=== PATIENT | female | born 1965 | race African-American/Black ===

== ENCOUNTER 2017-11-01 15:20 | Emergency (ER) | payer BC, OTHER ==
[~2017-11-01] VITALS: Ht 154.9 cm; Wt 70.3 kg
[~2017-11-01 15:20] MED LIST: NORCO 5-325 TA1 EACH PO; TRAMADOL 50 MG50 MG PO; ZYRTEC10 M2 PO
[2017-11-01 15:48] LABS: URINE BILIRUBIN NEGATIVE (Negative); URINE BLOOD 3+ (Negative); URINE CLARITY CLOUDY; URINE COLOR YELLOW; URINE GLUCOSE-RANDOM* NEGATIVE (Negative); URINE KETONES NEGATIVE (Negative); URINE NITRITE-REFLEX NEGATIVE (Negative); URINE PROTEIN (DIPSTICK) 2+ (Negative); URINE SPECIFIC GRAVITY 1.025 (1.005-1.035); URINE UROBILINOGEN 0.2 E.U./dl (0.2-1.0)
[2017-11-01 15:49] LABS: URINE LEUKOCYTES-REFLEX 1+ (Negative)
[2017-11-01 16:17] LABS: BACTERIA-REFLEX 1-9 Few /HPF (None Seen); CASTS None Seen /LPF (None Seen); CRYSTALS None Seen /LPF (None Seen); SQUAMOUS 4-10 Moderate /LPF (0-3); URINE RBC >20 Many /HPF (0-2); URINE WBC-REFLEX 0-5 Rare /HPF (0-5)
[2017-11-01] MEDS ORDERED: KEFLEX500 M1 PO (16:28)
[2017-11-01] MEDS ORDERED: PHENAZOPYRIDIN200 M2 PO (16:28)
== END 2017-11-01 16:46 | disposition home or self-care (01) ==
LOC: ER 15:20
PROVIDERS: Physician Assistant
DX: N39.0 Urinary tract infection, site not specified (principal); Z88.5 Allergy status to narcotic agent

== ENCOUNTER 2018-11-23 11:06 | Emergency (ER) | payer BC, OTHER ==
[~2018-11-23] VITALS: Ht 154.9 cm; Wt 70.8 kg
[~2018-11-23 11:06] MED LIST changes: +KEFLEX500 M1 PO; +PHENAZOPYRIDIN200 M2 PO
[2018-11-23 11:39] LABS: HEMOGLOBIN 8.9 gm/dL (12.0-15.0); MCH 20.7 pg (26.0-34.0); RBC 4.31 mil/uL (4.20-5.00)
[2018-11-23 11:46] LABS: ANION GAP 14 mmol/L (7-16); BUN 17 mg/dL (7-18); CALCIUM 9.5 mg/dL (8.5-10.1); CHLORIDE 102 mmol/L (98-107); CO2 23 mmol/L (21-32); CREATININE 1.5 mg/dL (0.6-1.0); GLUCOSE 132 mg/dL (74-106); POTASSIUM 3.3 mmol/L (3.5-5.1); SODIUM 139 mmol/L (136-145)
[2018-11-23 11:48] LABS: HEMATOCRIT 29.1 % (37.0-47.0); MCHC 30.6 g/dL (28.0-37.0); MCV 67.6 fL (80.0-100.0); RDW 21.8 % (10.5-14.5); WBC 8.1 thou/uL (4.0-11.0)
[2018-11-23 11:55] LABS: ALBUMIN 4.1 g/dL (3.4-5.0); SGOT 13 U/L (15-37); SGPT 10 U/L (30-65); TOTAL BILIRUBIN 0.3 mg/dL (<0.1-1.0); TOTAL PROTEIN 8.5 g/dL (6.4-8.2); TROPONIN-I <0.06 ng/mL (<0.06)
[2018-11-23 12:56] LABS: ANISOCYTOSIS 2+
[2018-11-23 12:57] LABS: MICROCYTES 2+
[2018-11-23] MEDS ORDERED: BENADRYL25 MG PO (12:57)
[2018-11-23 12:58] LABS: PLATELET COUNT ND thou/uL (150-400)
[2018-11-23 15:18] VITALS: BP 123/75; BP 129/77; BP 131/79; BP 131/80; BP 139/81
--- NOTE | 2018-11-23 16:33 | EKG ---
[address] [address] ELECTROCARDIOGRAM REPORT Name: JULIANA LOJA [id number] Admission: 11/23/18 Attend Phys: Discharge: Date of : 67 Report #: [id number] THIS REPORT FOR: //name// [facility] ED Test Date: 2018-11-23 Test Time: 11:27:03 Pat Name: JULIANA LOJA Department: Room: Gender: F Contracts Administrator: JOSE J : 1965 Requested By: Jennifer Kraus Order Number: [id number] MD: Usman Rucker Measurements Intervals [place] Rate: 94 P: 47 ME: 132 QRS: 28 QRSD: 83 T: 23 QT: 368 QTc: 461 Interpretive Statements Sinus rhythm Left atrial enlargement Compared to ECG 07/06/2009 07:41:37 Sinus tachycardia no longer present Electronically Signed On 11-23-2018 16:33:30 GROUNDSKEEPER SUPERVISOR by Usman Rucker [email or web address] <ELECTRONICALLY SIGNED> By: Usman Rucker MD 11/23/18 1633 [id number] MD SONYA Melissa
[2018-11-23 16:48] VITALS: BP 138/84
[2018-11-23] MEDS ORDERED: TRIGELS-F FORT1 EACH PO (16:52)
== END 2018-11-23 17:11 | disposition home or self-care (01) ==
LOC: ER 11:06
PROVIDERS: Student in an Organized Health Care Education/Training Program
DX: D64.9 Anemia, unspecified (principal); Z88.5 Allergy status to narcotic agent

== ENCOUNTER 2019-02-01 03:43 | Emergency (ER) | payer BC, OTHER ==
[~2019-02-01] VITALS: Ht 154.9 cm; Wt 68.0 kg
[~2019-02-01 03:43] MED LIST changes: +BENADRYL25 MG PO; +TRIGELS-F FORT1 EACH PO
[2019-02-01 04:20] LABS: HEMATOCRIT 37.2 % (37.0-47.0); HEMOGLOBIN 12.1 gm/dL (12.0-15.0); MCH 28.8 pg (26.0-34.0); MCHC 32.6 g/dL (28.0-37.0); MCV 88.4 fL (80.0-100.0); PLATELET COUNT 209 thou/uL (150-400); RBC 4.21 mil/uL (4.20-5.00); WBC 9.4 thou/uL (4.0-11.0)
[2019-02-01 04:32] LABS: ANION GAP 11 mmol/L (7-16); BUN 21 mg/dL (7-18); CALCIUM 9.1 mg/dL (8.5-10.1); CHLORIDE 105 mmol/L (98-107); CO2 24 mmol/L (21-32); CREATININE 0.5 mg/dL (0.6-1.0); GLUCOSE 106 mg/dL (74-106); POTASSIUM 4.1 mmol/L (3.5-5.1); SODIUM 140 mmol/L (136-145)
[2019-02-01 04:41] LABS: ALBUMIN 3.4 g/dL (3.4-5.0); SGOT 28 U/L (15-37); SGPT 14 U/L (30-65); TOTAL BILIRUBIN 0.3 mg/dL (<0.1-1.0); TOTAL PROTEIN 7.2 g/dL (6.4-8.2); TROPONIN-I <0.06 ng/mL (<0.06)
[2019-02-01 05:00] LABS: ABSOLUTE NEUTROPHILS 7.9 thou/uL (1.4-8.2)
[2019-02-01 05:02] LABS: ANISOCYTOSIS 2+; PLATELET ESTIMATE NORMAL
[2019-02-01] MEDS ORDERED: PEPCID20 MG PO (05:07)
[2019-02-01 06:43] VITALS: BP 184/100
--- NOTE | 2019-02-01 08:50 | EKG ---
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: [facility] : 1965 Requested By: Jennifer Kraus Order Number: [id number] MD: Usman Rucker Measurements Intervals [place] Rate: 92 P: 50 TN: 143 QRS: 16 QRSD: 84 T: 15 QT: 358 QTc: 443 Interpretive Statements Sinus rhythm Left atrial enlargement Baseline wander in lead(s) V2 Compared to ECG 11/23/2018 11:27:03 No significant changes Electronically Signed On 02-01-2019 8:50:29 CDT by Usman Rucker [email or web address] ��������������������������������������������� <ELECTRONICALLY SIGNED> ���������������������������������������� By: Usman Rucker MD ��������������������������������������������� 02/01/19 0850 0354 0354 Usman Rucker MD /HAIR
== END 2019-02-01 06:43 | disposition home or self-care (01) ==
LOC: ER 03:43
PROVIDERS: Student in an Organized Health Care Education/Training Program
DX: R07.89 Other chest pain (principal); R03.0 Elevated blood-pressure reading, without diagnosis of hypertension; Z88.5 Allergy status to narcotic agent

== ENCOUNTER 2019-02-06 07:01 | Emergency (ER) | payer BC, OTHER ==
[~2019-02-06] VITALS: Ht 154.9 cm; Wt 77.1 kg
[~2019-02-06 07:01] MED LIST changes: +PEPCID20 MG PO
[2019-02-06] MEDS ORDERED: IBUPROFEN 800800 M1 PO (07:43)
--- NOTE | 2019-02-06 07:47 | EKG ---
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 Receivable Supervisor: JOAQUIM : 1965 Requested By: Krish Stone Order Number: [id number] MD: Tex Valdez Measurements Intervals [place] Rate: 100 P: 45 CA: 138 QRS: 20 QRSD: 83 T: 9 QT: 346 QTc: 447 Interpretive Statements Sinus tachycardia Otherwise normal tracing Compared to ECG 02/01/2019 03:54:33 Heart rate has increased Electronically Signed On 02-06-2019 7:47:46 CDT by Tex Valdez [email or web address] ��������������������������������������������� <ELECTRONICALLY SIGNED> ���������������������������������������� By: Tex Valdez MD, [facility] ��������������������������������������������� 02/06/19 0747 0728 7 Tex Valdez MD, [facility] /EPI
[2019-02-06 07:54] LABS: HEMATOCRIT 39.8 % (37.0-47.0); HEMOGLOBIN 13.4 gm/dL (12.0-15.0); MCH 29.3 pg (26.0-34.0); MCHC 33.6 g/dL (28.0-37.0); MCV 87.2 fL (80.0-100.0); PLATELET COUNT 180 thou/uL (150-400); RBC 4.56 mil/uL (4.20-5.00); RDW 20.2 % (10.5-14.5); WBC 4.3 thou/uL (4.0-11.0)
[2019-02-06 07:56] LABS: URINE BILIRUBIN NEGATIVE (Negative); URINE BLOOD 3+ (Negative); URINE CLARITY CLEAR; URINE COLOR YELLOW; URINE GLUCOSE-RANDOM* NEGATIVE (Negative); URINE KETONES TRACE (Negative); URINE LEUKOCYTES-REFLEX NEGATIVE (Negative); URINE NITRITE-REFLEX NEGATIVE (Negative); URINE PROTEIN (DIPSTICK) TRACE (Negative); URINE SPECIFIC GRAVITY 1.025 (1.005-1.035); URINE UROBILINOGEN 0.2 E.U./dl (0.2-1.0)
[2019-02-06 08:12] LABS: ANION GAP 11 mmol/L (7-16); BUN 21 mg/dL (7-18); CHLORIDE 105 mmol/L (98-107); CO2 26 mmol/L (21-32); CREATININE 0.8 mg/dL (0.6-1.0); GLUCOSE 113 mg/dL (74-106); POTASSIUM 3.3 mmol/L (3.5-5.1); SODIUM 142 mmol/L (136-145)
[2019-02-06 08:16] LABS: AMP/METHAMP Negative (Negative); BARBITURATES Negative (Negative); BENZODIAZEPINES Negative (Negative); COCAINE Negative (Negative); METHADONE Negative (Negative); OPIATES Negative (Negative); PCP Negative (Negative)
[2019-02-06] MEDS ORDERED: CLONIDINE0.1 PO (08:16)
[2019-02-06 08:20] LABS: TROPONIN-I <0.06 ng/mL (<0.06)
[2019-02-06 08:31] VITALS: BP 166/106
[2019-02-06 08:31] LABS: SQUAMOUS >10 Many /LPF (0-3)
[2019-02-06 08:32] LABS: BACTERIA-REFLEX 1-9 Few /HPF (None Seen); CALCIUM OXALATE 4-10 Moderate /LPF (None Seen); CASTS None Seen /LPF (None Seen); URINE RBC 0-2 Rare /HPF (0-2); URINE WBC-REFLEX 0-5 Rare /HPF (0-5)
[2019-02-06 09:10] LABS: ABSOLUTE NEUTROPHILS 2.8 thou/uL (1.4-8.2); ANISOCYTOSIS 1+; PLATELET ESTIMATE NORMAL
== END 2019-02-06 08:31 | disposition home or self-care (01) ==
LOC: ER 07:01
PROVIDERS: Emergency Medicine
DX: I10 Essential (primary) hypertension (principal); R42 Dizziness and giddiness; Z88.5 Allergy status to narcotic agent

== ENCOUNTER 2019-07-26 05:49 | Emergency (ER) | payer BC, OTHER ==
[~2019-07-26] VITALS: Ht 154.9 cm; Wt 69.4 kg
[~2019-07-26 05:49] MED LIST changes: +CLONIDINE0.1 PO; +IBUPROFEN 800800 M1 PO
[2019-07-26] MEDS ORDERED: HYDROCHLOROTH12.5 M1 PO (06:18)
[2019-07-26] MEDS ORDERED: CLARITIN10 MG PO (06:19)
[2019-07-26 06:42] LABS: ABSOLUTE NEUTROPHILS 9.9 thou/uL (1.4-8.2); BASOPHILS 0.2 % (0.0-2.0); EOSINOPHILS 0.2 % (0.0-3.0); HEMATOCRIT 27.2 % (37.0-47.0); HEMOGLOBIN 8.7 gm/dL (12.0-15.0); LYMPHOCYTES 3.4 % (24.0-44.0); MCH 23.8 pg (26.0-34.0); MCHC 31.9 g/dL (28.0-37.0); MCV 74.5 fL (80.0-100.0); MONOCYTES 6.9 % (1.0-8.0); PLATELET COUNT 205 thou/uL (150-400); POLYS 89.3 % (36.0-66.0); RBC 3.65 mil/uL (4.20-5.00); RDW 17.7 % (10.5-14.5); WBC 11.1 thou/uL (4.0-11.0)
[2019-07-26 07:10] LABS: CALCIUM 8.7 mg/dL (8.5-10.1); CREATININE 0.6 mg/dL (0.6-1.0); TOTAL BILIRUBIN 0.9 mg/dL (<0.1-1.0); TOTAL PROTEIN 7.3 g/dL (6.4-8.2)
[2019-07-26 07:13] LABS: POTASSIUM 2.6 mmol/L (3.5-5.1)
[2019-07-26 08:39] LABS: URINE BILIRUBIN NEGATIVE (Negative); URINE BLOOD 3+ (Negative); URINE CLARITY TURBID; URINE COLOR RED; URINE GLUCOSE-RANDOM* NEGATIVE (Negative); URINE KETONES 1+ (Negative); URINE LEUKOCYTES-REFLEX TRACE (Negative); URINE NITRITE-REFLEX NEGATIVE (Negative); URINE PROTEIN (DIPSTICK) 2+ (Negative); URINE SPECIFIC GRAVITY <= 1.005 (1.005-1.035); URINE UROBILINOGEN 0.2 E.U./dl (0.2-1.0)
[2019-07-26 08:42] LABS: SQUAMOUS None Seen /LPF (0-3); URINE RBC >20 Many /HPF (0-2)
[2019-07-26 08:43] LABS: BACTERIA-REFLEX 1-9 Few /HPF (None Seen); CASTS None Seen /LPF (None Seen); CRYSTALS None Seen /LPF (None Seen); URINE WBC-REFLEX 6-15 Few /HPF (0-5)
[2019-07-26 11:18] LABS: CALCIUM 8.2 mg/dL (8.5-10.1); CREATININE 0.5 mg/dL (0.6-1.0)
[2019-07-26 11:19] LABS: POTASSIUM 2.8 mmol/L (3.5-5.1)
[2019-07-26 11:59] VITALS: BP 120/62
[2019-07-26] MEDS ORDERED: TRAMADOL100 MG PO (11:59)
== END 2019-07-26 11:59 | disposition home or self-care (01) ==
LOC: ER 05:49
PROVIDERS: Emergency Medicine
DX: E87.6 Hypokalemia (principal); D25.9 Leiomyoma of uterus, unspecified; R10.32 Left lower quadrant pain; Z88.6 Allergy status to analgesic agent

== ENCOUNTER 2019-08-12 14:37 | Emergency (ER) | payer BC, OTHER ==
[~2019-08-12] VITALS: Ht 154.9 cm; Wt 70.3 kg
[~2019-08-12 14:37] MED LIST changes: +CLARITIN10 MG PO; +HYDROCHLOROTH12.5 M1 PO; +TRAMADOL100 MG PO
[2019-08-12 15:07] LABS: ABSOLUTE NEUTROPHILS 10.9 thou/uL (1.4-8.2); BASOPHILS 0.4 % (0.0-2.0); HEMATOCRIT 35.3 % (37.0-47.0); LYMPHOCYTES 4.9 % (24.0-44.0); MCH 24.9 pg (26.0-34.0); MCHC 31.1 g/dL (28.0-37.0); MONOCYTES 3.8 % (1.0-8.0); PLATELET COUNT 246 thou/uL (150-400); POLYS 90.9 % (36.0-66.0); RBC 4.41 mil/uL (4.20-5.00); RDW 24.2 % (10.5-14.5)
[2019-08-12 15:13] LABS: CALCIUM 8.9 mg/dL (8.5-10.1); CREATININE 0.5 mg/dL (0.6-1.0); POTASSIUM 3.3 mmol/L (3.5-5.1)
[2019-08-12 15:21] LABS: ALBUMIN 3.8 g/dL (3.4-5.0); TOTAL BILIRUBIN 0.6 mg/dL (<0.1-1.0); TOTAL PROTEIN 8.3 g/dL (6.4-8.2)
[2019-08-12 15:25] LABS: ANISOCYTOSIS 3+; MACROCYTES 1+; MICROCYTES 2+
[2019-08-12 16:09] LABS: URINE BILIRUBIN NEGATIVE (Negative); URINE BLOOD 3+ (Negative); URINE CLARITY CLEAR; URINE COLOR YELLOW; URINE GLUCOSE-RANDOM* NEGATIVE (Negative); URINE KETONES 1+ (Negative); URINE LEUKOCYTES NEGATIVE (Negative); URINE NITRITE NEGATIVE (Negative); URINE PROTEIN (DIPSTICK) NEGATIVE (Negative); URINE SPECIFIC GRAVITY <= 1.005 (1.005-1.035); URINE UROBILINOGEN 0.2 E.U./dl (0.2-1.0)
[2019-08-12 16:14] LABS: SQUAMOUS >10 Many /LPF (0-3)
[2019-08-12 16:15] LABS: BACTERIA None Seen /HPF (None Seen); CASTS None Seen /LPF (None Seen); CRYSTALS None Seen /LPF (None Seen); URINE RBC 0-2 Rare /HPF (0-2); URINE WBC 0-5 Rare /HPF (0-5)
[2019-08-12 16:17] LABS: AMP/METHAMP Negative (Negative); BARBITURATES Negative (Negative); BENZODIAZEPINES Negative (Negative); COCAINE Negative (Negative); METHADONE Negative (Negative); OPIATES POSITIVE (Negative); PCP Negative (Negative)
[2019-08-12] MEDS ORDERED: NORCO 5-325 TA1 EAC1 PO (16:23)
[2019-08-12 16:58] VITALS: BP 136/82
== END 2019-08-12 17:09 | disposition home or self-care (01) ==
LOC: ER 14:37
PROVIDERS: Physician Assistant
DX: E86.0 Dehydration (principal); E87.6 Hypokalemia; D25.9 Leiomyoma of uterus, unspecified; D64.9 Anemia, unspecified; R10.32 Left lower quadrant pain; Z88.5 Allergy status to narcotic agent

== ENCOUNTER 2019-09-06 18:46 | Emergency (ER) | payer BC, OTHER ==
[~2019-09-06] VITALS: Ht 154.9 cm; Wt 70.3 kg
[~2019-09-06 18:46] MED LIST changes: +NORCO 5-325 TA1 EAC1 PO
[2019-09-06 19:54] LABS: ABSOLUTE NEUTROPHILS 8.3 thou/uL (1.4-8.2); BASOPHILS 0.8 % (0.0-2.0); EOSINOPHILS 0.8 % (0.0-3.0); HEMATOCRIT 33.1 % (37.0-47.0); HEMOGLOBIN 10.5 gm/dL (12.0-15.0); LYMPHOCYTES 5.2 % (24.0-44.0); MCHC 31.7 g/dL (28.0-37.0); MONOCYTES 8.2 % (1.0-8.0); PLATELET COUNT 194 thou/uL (150-400); RBC 4.04 mil/uL (4.20-5.00); RDW 24.3 % (10.5-14.5); WBC 9.7 thou/uL (4.0-11.0)
[2019-09-06 19:56] LABS: URINE BILIRUBIN NEGATIVE (Negative); URINE BLOOD 3+ (Negative); URINE CLARITY CLOUDY; URINE COLOR RED; URINE GLUCOSE-RANDOM* NEGATIVE (Negative); URINE KETONES NEGATIVE (Negative); URINE LEUKOCYTES-REFLEX NEGATIVE (Negative); URINE NITRITE-REFLEX NEGATIVE (Negative); URINE PROTEIN (DIPSTICK) 1+ (Negative); URINE SPECIFIC GRAVITY 1.015 (1.005-1.035); URINE UROBILINOGEN 0.2 E.U./dl (0.2-1.0)
[2019-09-06 20:06] LABS: BACTERIA-REFLEX 1-9 Few /HPF (None Seen); CASTS None Seen /LPF (None Seen); CRYSTALS None Seen /LPF (None Seen); SQUAMOUS None Seen /LPF (0-3); URINE RBC >20 Many /HPF (0-2); URINE WBC-REFLEX None Seen /HPF (0-5)
[2019-09-06 20:07] LABS: ALBUMIN 3.6 g/dL (3.4-5.0); CALCIUM 9.2 mg/dL (8.5-10.1); CREATININE 0.6 mg/dL (0.6-1.0); TOTAL BILIRUBIN 0.4 mg/dL (<0.1-1.0); TOTAL PROTEIN 7.6 g/dL (6.4-8.2)
[2019-09-06 20:09] LABS: POTASSIUM 2.9 mmol/L (3.5-5.1)
[2019-09-06 20:13] LABS: ANISOCYTOSIS 2+; POLYCHROMASIA OCCASIONAL
[2019-09-06] MEDS ORDERED: NORCO 10-325 T1 EACH PO (20:58)
[2019-09-06] MEDS ORDERED: POTASSIUM20 PO (20:58)
[2019-09-06 21:55] VITALS: BP 126/82
== END 2019-09-06 21:59 | disposition home or self-care (01) ==
LOC: ER 18:46
PROVIDERS: Physician Assistant
DX: D25.9 Leiomyoma of uterus, unspecified (principal); E87.6 Hypokalemia; Z90.89 Acquired absence of other organs; Z88.5 Allergy status to narcotic agent

== ENCOUNTER 2019-10-19 16:20 | Emergency (ER) | payer BC, OTHER ==
[~2019-10-19] VITALS: Ht 154.9 cm; Wt 69.4 kg
[~2019-10-19 16:20] MED LIST changes: +NORCO 10-325 T1 EACH PO; +POTASSIUM20 PO
[2019-10-19] MEDS ORDERED: IBUPROFEN 600600 M1 PO (18:15)
[2019-10-19 18:43] VITALS: BP 153/103
== END 2019-10-19 18:44 | disposition home or self-care (01) ==
LOC: ER 16:20
DX: M25.562 Pain in left knee (principal); M25.561 Pain in right knee; I10 Essential (primary) hypertension; Z90.49 Acquired absence of other specified parts of digestive tract; Z88.6 Allergy status to analgesic agent

== ENCOUNTER 2020-07-15 04:29 | Emergency (ER) | payer BC, OTHER ==
[~2020-07-15] VITALS: Ht 154.9 cm; Wt 71.7 kg
[~2020-07-15 04:29] MED LIST changes: +IBUPROFEN 600600 M1 PO
[2020-07-15] MEDS ORDERED: POTASSIUM CITR10 ME1 PO (04:36)
[2020-07-15] MEDS ORDERED: AMLODIPINE BESY10 MG PO (04:36)
[2020-07-15] MEDS ORDERED: IBUPROFEN 800800 M1 PO (04:36)
[2020-07-15] MEDS ORDERED: IRON325 PO (04:38)
[2020-07-15] MEDS ORDERED: HYDROCHLOROTH12.5 M1 PO (04:38)
[2020-07-15] MEDS ORDERED: AYGESTIN PO (04:38)
[2020-07-15] MEDS ORDERED: CLARITIN10 MG PO (04:38)
[2020-07-15] MEDS ORDERED: [UNRECOGNIZED DRUG - OTHER] PO (04:38)
[2020-07-15 04:51] LABS: URINE BILIRUBIN NEGATIVE (Negative); URINE BLOOD 3+ (Negative); URINE CLARITY CLEAR; URINE COLOR YELLOW; URINE GLUCOSE-RANDOM* NEGATIVE (Negative); URINE KETONES TRACE (Negative); URINE LEUKOCYTES-REFLEX NEGATIVE (Negative); URINE NITRITE-REFLEX NEGATIVE (Negative); URINE PROTEIN (DIPSTICK) NEGATIVE (Negative)
[2020-07-15 04:57] LABS: AMORPHOUS URATES Few /LPF (None Seen); CASTS None Seen /LPF (None Seen); CRYSTALS None Seen /LPF (None Seen); MUCUS 0-3 Light strn/LPF (None Seen); SQUAMOUS 4-10 Moderate /LPF (0-3); URINE WBC-REFLEX 6-15 Few /HPF (0-5)
[2020-07-15 05:30] LABS: ABSOLUTE NEUTROPHILS 6.5 thou/uL (1.4-8.2); BASOPHILS 0.6 % (0.0-2.0); EOSINOPHILS 0.8 % (0.0-3.0); HEMATOCRIT 37.4 % (37.0-47.0); HEMOGLOBIN 12.6 gm/dL (12.0-15.0); LYMPHOCYTES 5.8 % (24.0-44.0); MCH 30.6 pg (26.0-34.0); MCHC 33.8 g/dL (28.0-37.0); MCV 90.6 fL (80.0-100.0); MONOCYTES 6.3 % (1.0-8.0); PLATELET COUNT 168 thou/uL (150-400); POLYS 86.5 % (36.0-66.0); RBC 4.13 mil/uL (4.20-5.00); RDW 14.8 % (10.5-14.5); WBC 7.6 thou/uL (4.0-11.0)
[2020-07-15 05:46] LABS: ALBUMIN 3.5 g/dL (3.4-5.0); ANION GAP 10 mmol/L (7-16); BUN 15 mg/dL (7-18); CALCIUM 8.1 mg/dL (8.5-10.1); CHLORIDE 101 mmol/L (98-107); CO2 25 mmol/L (21-32); CREATININE 0.4 mg/dL (0.6-1.0); GLUCOSE 139 mg/dL (74-106); LIPASE 67 U/L (73-393); SGOT 13 U/L (15-37); SGPT 14 U/L (30-65); SODIUM 136 mmol/L (136-145); TOTAL BILIRUBIN 0.3 mg/dL (0.2-1.0); TOTAL PROTEIN 7.2 g/dL (6.4-8.2); TROPONIN-I <0.06 ng/mL (<0.06)
[2020-07-15 05:54] LABS: POTASSIUM 2.8 mmol/L (3.5-5.1)
[2020-07-15] MEDS ORDERED: KEFLEX500 M1 PO (07:26)
[2020-07-15] MEDS ORDERED: ROXICODONE5 M2 PO (07:26)
[2020-07-15] MEDS ORDERED: IBUPROFEN 800800 MG PO (07:26)
[2020-07-15 07:32] VITALS: BP 116/73
--- NOTE | 2020-07-15 08:13 | EKG ---
[facility] [place] [address] ELECTROCARDIOGRAM REPORT Name: JULIANA LOJA Room #: [facility]P [facility] [id number] Admission: 07/15/20 Attend Phys: Discharge: 07/15/20 Date of : 67 Report #: [id number] THIS REPORT FOR: cc: [facility] - Clinic physician unknown [facility] - Clinic physician unknown Usman Rucker MD ~ THIS REPORT FOR: //name// [facility] ED Test Date: 2020-07-15 Test Time: 04:52:39 Pat Name: JULIANA LOJA Department: Room: Gender: F 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
== END 2020-07-15 07:38 | disposition home or self-care (01) ==
LOC: ER 04:29
PROVIDERS: Emergency Medicine
DX: K57.30 Diverticulosis of large intestine without perforation or abscess without bleeding (principal); N39.0 Urinary tract infection, site not specified; D25.9 Leiomyoma of uterus, unspecified; R31.29 Other microscopic hematuria; I10 Essential (primary) hypertension; Z79.899 Other long term (current) drug therapy; Z88.5 Allergy status to narcotic agent; Z90.89 Acquired absence of other organs

== ENCOUNTER 2021-09-29 06:22 | Inpatient (IN) | payer BC, OTHER ==
[~2021-09-29] VITALS: Ht 154.9 cm; Wt 78.9 kg
--- NOTE | ~2021-09-29 | EMS ---
[place] [id number] EMS Patient Care Report Name: JULIANA LOJA Room #: 350-P ADM IN M.R.#: [id number] Admission: 09/29/21 Attend Phys: Phil Canseco MD Discharge: Date of : 67 Report #: [id number] THIS REPORT FOR: //name// Report Transmitted: 10/01/2021 11:08 EMS Care Summary [place], [place]/[facility] Incident [id number] @ 09/29/2021 05:45 Incident Location [address] [place] [address] Patient JULIANA LOJA Female, 55 Years 1965 Patient Address [address] [place] [address] Patient History Hypertension (HTN), Patient Allergies Codeine, Chief Complaint dizzy Disposition Transported No Lights/[place] Dispatch Reason Sick Person Transported To [facility] Narrative pt found lying in bed , a&o. she states for 3 days she has had dry cough, fatigue, runny nose. she has been taking OTC med for cold and flu symptoms. in the past 24 hrs, she has been dizzy, has a headache and feels "dehydrated". she c/o increased SOB w/ exertion. pt is not vaccinated for [place] [address] EMS Patient Care Report Name: JULIANA LOJA Room #: 350-P ADM IN [facility]#: [id number] Admission: 09/29/21 Attend Phys: Phil Canseco MD Discharge: Date of : 67 Report #: [id number] eval at [facility]. pt ambulatory to unit w/ assist, seats self on cot, VS. IV unsuccessful, transport w/o incident. pt 02 sat improves w/ 02/NC. Initial Vitals @06:15SpO2: 94, @06:04P: 109,R: 20,BP: 136/92,Pain: 8/10,GCS: 15,Temp: 98.2F,SpO2: 88,Revised Trauma: 12, Assessments @05:55MENTAL:Time Oriented,Place Oriented,Person Oriented,Event Oriented,SKIN:No Abnormalities,HEENT:Head/Face: Other,LUNG SOUNDS:ABDOMEN:PELVIS//GI:EXTREMITIES:PULSE:Radial: 2+ Normal,NEURO:Other, Impression Cough Procedures @05:55 ALS Assessment Response: Unchanged @06:03 3-Lead ECG Response: Unchanged @05:58 Stretcher Response: Unchanged @06:05 Oxygen FlowRate: 4 Device: Nasal Cannula (NC) Response: ImprovedSucceeded Timeline 05:43,Call Received 05:43,Dispatch Notified 05:45,Dispatched 05:47,En Route 05:53,On Scene 05:55,At Patient 05:55,ALS Assessment,Response: Unchanged 05:58,Stretcher,Response: Unchanged 06:03,3-Lead ECG,Response: Unchanged 06:04,BP: 136/92 M,PULSE: 109,RR: 20 R,SPO2: 88 Ox,ETCO2: ,BG: ,PAIN: 8,GCS: 15, 06:05,Oxygen FlowRate: 4 Device: Nasal Cannula (NC) Response: ImprovedSucceeded, 06:08,Depart Scene 06:15,BP: / M,PULSE: ,RR: R,SPO2: 94 Ox,ETCO2: ,BG: ,PAIN: ,GCS: , 06:25,At Destination 06:27,Call Closed Disclaimer v1.1 Copyright 2020 [employer] This EMS Care Summary contains data elements from the applicable legal record (which may be displayed differently). It is designed to provide pertinent [address] [address] EMS Patient Care Report Name: JULIANA LOJA Room #: 350-P ADM IN .R.#: [id number] Admission: 09/29/21 Attend Phys: Phil Canseco MD Discharge: Date of : 67 Report #: [id number] information for the following purposes: continuity of care, clinical quality, and state data reporting. The complete legal record is available to ED staff and administrators of the receiving hospital in ES's Patient Tracker. All data is provided "as is."
[~2021-09-29 06:22] MED LIST changes: +AMLODIPINE BESY10 MG PO; +AYGESTIN PO; +IBUPROFEN 800800 MG PO; +IRON325 PO; +POTASSIUM CITR10 ME1 PO; +ROXICODONE5 M2 PO; +[UNRECOGNIZED DRUG - OTHER] PO
[2021-09-29 06:23] VITALS: BP 128/81
[2021-09-29 06:58] LABS: ABSOLUTE NEUTROPHILS 6.9 thou/uL (1.4-8.2); BASOPHILS 0.2 % (0.0-2.0); EOSINOPHILS 0.1 % (0.0-3.0); HEMATOCRIT 40.1 % (37.0-47.0); HEMOGLOBIN 13.2 gm/dL (12.0-15.0); LYMPHOCYTES 9.6 % (24.0-44.0); MCH 29.4 pg (26.0-34.0); MCV 89.2 fL (80.0-100.0); MONOCYTES 6.4 % (1.0-8.0); PLATELET COUNT 188 thou/uL (150-400); POLYS 83.7 % (36.0-66.0); RBC 4.49 mil/uL (4.20-5.00); RDW 13.9 % (10.5-14.5); WBC 8.3 thou/uL (4.0-11.0)
[2021-09-29 07:02] LABS: CALCIUM 9.1 mg/dL (8.5-10.1); CREATININE 0.8 mg/dL (0.6-1.0)
[2021-09-29 07:11] LABS: DIRECT BILIRUBIN 0.1 mg/dL (<0.1-0.2); TOTAL BILIRUBIN 0.7 mg/dL (0.2-1.0); TOTAL PROTEIN 7.8 g/dL (6.4-8.2)
[2021-09-29 10:00] VITALS: BP 127/78
[2021-09-29 16:13] VITALS: BP 120/81
--- NOTE | 2021-09-29 19:41 | NUR ---
PATIENT IS ALERT AND ORIENTED X4. PATIENT IS ADMITTED TO THE FLOOR ON 2L OF OXYGEN. PATIENT REFUSES TO LEAVE THE OXYGEN ON. BY THE END OF THIS SHIFT PATIENT IS NO LONGER USING OXYGEN AND IS HAVING SATURATIONS IN THE HIGH 90'S. PATIENT IS CCTELE AND HAS BEEN RUNNING SINUS TACHY THIS SHIFT. PATIENT IS INDEPENDENT FOR TOILETING. UA WAS COLLECTED. WAS UNABLE TO COLLECT STOOL SPECIMEN THIS SHIFT. PATIENT HAS AN IV IN HER RIGHT AC. IV IS PATIENT. PATIENT WILL CONTINUE TO BE MONITORED.
[2021-09-29 20:54] VITALS: BP 122/77
--- NOTE | 2021-09-30 02:55 | NUR ---
STAT CTA ORDERED AND PT TAKEN DOWN AT 2230. NEGATIVE FOR PE. ISOLATION PRECAUTIONS IN PLACE.
[2021-09-30 03:27] LABS: ABSOLUTE NEUTROPHILS 3.4 thou/uL (1.4-8.2); BASOPHILS 0.1 % (0.0-2.0); HEMATOCRIT 37.9 % (37.0-47.0); HEMOGLOBIN 12.7 gm/dL (12.0-15.0); LYMPHOCYTES 8.7 % (24.0-44.0); MCH 29.5 pg (26.0-34.0); MCHC 33.4 g/dL (28.0-37.0); MCV 88.5 fL (80.0-100.0); MONOCYTES 8.5 % (1.0-8.0); PLATELET COUNT 186 thou/uL (150-400); POLYS 82.7 % (36.0-66.0); RBC 4.29 mil/uL (4.20-5.00); RDW 13.9 % (10.5-14.5); WBC 4.1 thou/uL (4.0-11.0)
[2021-09-30 04:43] LABS: ALBUMIN 2.6 g/dL (3.4-5.0); ANION GAP 13 mmol/L (7-16); BUN 17 mg/dL (7-18); CHLORIDE 106 mmol/L (98-107); CO2 20 mmol/L (21-32); CREATININE 0.6 mg/dL (0.6-1.0); DIRECT BILIRUBIN < 0.1 mg/dL (<0.1-0.2); GLUCOSE 122 mg/dL (74-106); MAGNESIUM 1.9 mg/dL (1.8-2.4); PHOSPHORUS 2.7 mg/dL (2.5-4.9); POTASSIUM 3.1 mmol/L (3.5-5.1); SGOT 27 U/L (15-37); SGPT 22 U/L (30-65); SODIUM 139 mmol/L (136-145); TOTAL BILIRUBIN 0.3 mg/dL (0.2-1.0); TOTAL PROTEIN 7.5 g/dL (6.4-8.2)
[2021-09-30 05:28] VITALS: BP 84/61
--- NOTE | 2021-09-30 07:14 | EKG ---
[address] [address] ELECTROCARDIOGRAM REPORT Name: JULIANA LOJA Room #: 350-P ADM IN M.R.#: [id number] Admission: 09/29/21 Attend Phys: Phil Canseco MD Discharge: Date of : 67 Report #: [id number] [facility] ED Test Date: 2021-09-29 Test Time: 07:25:23 Pat Name: JULIANA LOJA Department: Room: 350 Gender: F Supervisor Assembly Room: brandan : 1965 Requested By: Yarelis Esteves Order Number: [id number] MD: Stephan Judd Measurements Intervals [place] Rate: 107 P: 35 [place]: 136 QRS: 14 QRSD: 80 T: -3 QT: 323 QTc: 431 Interpretive Statements Sinus tachycardia Left atrial enlargement Compared to ECG 07/15/2020 04:52:39 Sinus rhythm no longer present Electronically Signed On 09-30-2021 7:13:50 LITHOPONE CHARGER by Stephan Judd [email or web address] <ELECTRONICALLY SIGNED> By: Stephan Judd MD, [facility] 09/30/21712 4 4 Stephan Judd MD, FACC /EPI
[2021-09-30 08:24] VITALS: BP 124/84
--- NOTE | 2021-09-30 08:31 | HC ---
[facility] [place] [address] CONSULTATION Name: JULIANA LOJA Room #: 350-P ADM IN M.R.#: [id number] Admission: 09/29/21 Attend Phys: Phil Canseco MD Discharge: Date of : 67 Report #: [id number] THIS REPORT FOR: cc: [facility] - Clinic physician unknown [facility] - Clinic physician unknown Zoltan Gilbert MD ~ DATE OF SERVICE: 09/29/2021 INFECTIOUS DISEASE CONSULTATION ATTENDING PHYSICIAN: Dr. Canseco. REASON FOR EVALUATION: COVID-19 infection, complicated by pneumonitis, respiratory failure. HISTORY OF PRESENT ILLNESS: Chart reviewed. The patient examined. This is a 55-year-old woman with history of hypertension, presented to the Emergency Room with complaints of roughly 3-day history of progressive dyspnea, nonproductive cough, some sinus congestion, fever and dizziness. She had noted some progression of the signs and symptoms. She felt this was likely a respiratory tract infection, perhaps complicated by allergies. 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 She was found to be hypoxemic on presentation, although she is currently not requiring supplemental oxygen, but had been on 2 liters. She was found to be coronavirus-19 positive. Chest x-ray did show some focal infiltrates. D-dimer was slightly elevated at 0.6. She was started empirically on therapy with remdesivir, ceftriaxone, azithromycin, dexamethasone, and vitamins. ALLERGIES: CODEINE. MEDICATIONS: Include: Cholecalciferol, zinc, guaifenesin, famotidine, enoxaparin, dexamethasone, Loratidine, amlodipine, ascorbic acid, benzonatate, hydrocodone as needed, remdesivir, ceftriaxone, azithromycin. SOCIAL HISTORY: Nonsmoker, no ethanol, no illicit drug use. FAMILY HISTORY: Noncontributory. REVIEW OF SYSTEMS: Otherwise, unremarkable. Denies any significant GI-related complaints. PHYSICAL EXAMINATION: GENERAL: She is alert, cooperative, in pooz-kz-grndnsaq distress. VITAL SIGNS: Temperature 101.8 earlier, pulse 109, respirations 24, blood pressure is 127/78. SKIN: Warm, dry, no rashes. [facility] [address] [place] [address] CONSULTATION Name: JULIANA LOJA Room #: 350-P [facility] IN [facility].#: [id number] Admission: 09/29/21 Attend Phys: Phil Canseco MD Discharge: Date of : 67 Report #: [id number] HEENT: Normocephalic. Extraocular muscles intact. NECK: Supple. LUNGS: Few bilateral coarse breath sounds. HEART: Tachycardic. Appears to be regular. I do not appreciate a murmur. ABDOMEN: Soft, nontender. EXTREMITIES: No cyanosis. GENITOURINARY AND RECTAL: Deferred. LABORATORY DATA: TSH 0.565. Procalcitonin 0.10. CRP of 119. D-dimer 0.6. Chest x-ray shows bilateral infiltrates. Electrolytes: Sodium 142, potassium 3, chloride 106, bicarbonate 23, anion gap of 13, BUN and creatinine 15 and 0.8. CBC: White count of 8.3, H and H 13.2 and 40.1, platelets of 188. ASSESSMENT AND PLAN: COVID-19 infection, complicated by pneumonitis and respiratory failure. We will continue a combination therapy including antibacterials, do additional diagnostic testing, to exclude a secondary bacterial etiology, although we will start empiric therapy. At this point, she is not overtly toxic, although she is somewhat tenuous. Continue to monitor expectantly. Supportive care is required. <ELECTRONICALLY SIGNED> By: Zoltan Gilbert MD 09/30/21 0831 0951 1022 Zoltan Gilbert MD /nt
[2021-09-30 10:44] VITALS: BP 127/83
[2021-09-30 14:55] VITALS: BP 115/77
--- NOTE | 2021-09-30 14:58 | NUR ---
INITIAL ASSESSMENT:S Received consult. SW reviewed chart and spoke with nursing and attending physician. Pt was admitted from home due to COVID pneumonia. Pt placed in Enhanced Isolation. Per chart, pt has not received a COVID vaccination. Pt is afebrile and on 2L of O2. Pt is on IV abx and IV steroids. Remdesivir started yesterday. SW spoke with pt via phone. Introduced role of SW. Pt is alert/orientated x 4. Pt reports she lives at home with family. Prior to admission, pt was independent with ADLs. No use of DME. No hx of services or post-acute placement. Pt states she has a PCP, who's office is on the [place]. Pt is employed and states she may need documentation to provide to her employer regarding hospitalization. Pt to notify physician or SW if she needs paperwork completed. Plan is for pt to discharge home when medically stable. SW is following to assist as needed with discharge planning.
[2021-09-30 19:59] VITALS: BP 134/88
--- NOTE | 2021-09-30 20:07 | NUR ---
PT WENT TO BATHROOM MULTIPLE TIMES TODAY AND EACH TIME SHE TOOK OFF TELE/GOWN AND HAD IV TUBING WRAPPED AROUND POLE...SHE DOES NOT SEEM TO HAVE GOOD JUDGEMENT WHEN GETTING OUT OF BED.. ADVISED TO CALL FOR ASSISTANCE SO SHE DOES NOT PULL OUT HER IV...
[2021-10-01 04:02] VITALS: BP 132/85
--- NOTE | 2021-10-01 04:26 | NUR ---
PROGRESS PT A/O X4. UP WITH ASSISTANCE D/T PT NOT MANAGING EQUIPMENT EASILY GETTING TANGLED UP IN O2 AND IV TUBING, CALLS APPROPRIATELY. VSS. LUNGS CLEAR BUT DIMIISHED, INFEQUENT DRY NON PRODUCTIVE COUGH PER PATIENT. IVF'S INFUSING ORDERED. CONTINUE POC.
[2021-10-01 07:17] LABS: ALBUMIN 2.6 g/dL (3.4-5.0); ANION GAP 14 mmol/L (7-16); BUN 14 mg/dL (7-18); CALCIUM 8.7 mg/dL (8.5-10.1); CHLORIDE 108 mmol/L (98-107); CO2 20 mmol/L (21-32); CREATININE 0.5 mg/dL (0.6-1.0); DIRECT BILIRUBIN < 0.1 mg/dL (<0.1-0.2); GLUCOSE 96 mg/dL (74-106); PHOSPHORUS 2.4 mg/dL (2.5-4.9); POTASSIUM 3.1 mmol/L (3.5-5.1); SGOT 27 U/L (15-37); SGPT 21 U/L (30-65); SODIUM 142 mmol/L (136-145); TOTAL BILIRUBIN 0.2 mg/dL (0.2-1.0); TOTAL PROTEIN 7.2 g/dL (6.4-8.2)
[2021-10-01 07:44] VITALS: BP 132/91
[2021-10-01 11:36] VITALS: BP 126/90
[2021-10-01 15:07] VITALS: BP 121/85
--- NOTE | 2021-10-01 17:26 | NUR ---
PT STATING SHE NEEDS A PHYSICIAN NOTE FOR WORK. AM LABS SHOWING K+ 3.1. SENT KRYPTO TEXT TO DR. AMEZQUITA ADDRESSING BOTH ITEMS. PT FREQUENTLY CALLING OUT, VSS. 02 SATURATIONS DROP WHEN PT IS AMBULATING, CURRENTLY ON 2L VIA NC.
[2021-10-01 19:20] VITALS: BP 126/82
[2021-10-02 03:32] VITALS: BP 127/84
[2021-10-02 06:34] LABS: MCH 29.4 pg (26.0-34.0); MCHC 33.4 g/dL (28.0-37.0); RBC 4.43 mil/uL (4.20-5.00); RDW 13.5 % (10.5-14.5); WBC 3.6 thou/uL (4.0-11.0)
[2021-10-02 07:12] LABS: ALBUMIN 2.4 g/dL (3.4-5.0); ANION GAP 12 mmol/L (7-16); BUN 14 mg/dL (7-18); CALCIUM 8.4 mg/dL (8.5-10.1); CHLORIDE 106 mmol/L (98-107); CO2 22 mmol/L (21-32); CREATININE 0.6 mg/dL (0.6-1.0); DIRECT BILIRUBIN < 0.1 mg/dL (<0.1-0.2); GLUCOSE 120 mg/dL (74-106); PHOSPHORUS 2.7 mg/dL (2.5-4.9); SGOT 28 U/L (15-37); SGPT 34 U/L (30-65); SODIUM 140 mmol/L (136-145); TOTAL BILIRUBIN 0.2 mg/dL (0.2-1.0); TOTAL PROTEIN 6.6 g/dL (6.4-8.2)
[2021-10-02 07:17] VITALS: BP 120/86
--- NOTE | 2021-10-02 07:51 | NUR ---
PROGRESS PT A/O X4. UP WITH ASSIST D/T EQUIPMENT. IVF'S INFUSING ORDERED ON 2 LITERS O2 LUNGS DIMINISHED WITH SLIGHT WHEEZES NOTED IN UPPER REEVES THAT CLEAR WITH COUGH, PT USING ISP INDEPENDENTLY. TELEMETRY INTACT READING SR PT DENIES PAIN CONTINUE POC.
[2021-10-02 07:57] LABS: POTASSIUM 2.6 mmol/L (3.5-5.1)
[2021-10-02 11:13] VITALS: BP 118/78
--- NOTE | 2021-10-02 12:01 | NUR ---
SW reviewed chart and spoke with nursing and attending physician. Pt remains in Enhanced Isolation due to COVID. Pt is progressing towards goals for discharge. Discharge to home is anticipated for tomorrow. Pt is afebrile and currently on 2L of O2. Pt is on IV abx and IV steroids. Pt to complete course of Remdesivir tomorrow. SW spoke with pt via phone to provide update and discuss discharge plan. Pt is aware and in agreement with plan. SW discussed possible need for home O2. Pt verbalized understanding. Pt needed documentation to provide to her employer regarding her hospitalization. SW provided documentation to pt's nurse, to provide to pt. Plan is for pt to discharge home. [facility] is following to assist as needed with discharge planning.
[2021-10-02 15:24] VITALS: BP 120/82
--- NOTE | 2021-10-02 19:32 | NUR ---
A/O X4. AMBULATED ON ROOM. TOLERATED 1L/NC. K+ REPLACED. PROGRESSING TOWARDS POC GOALS.
[2021-10-02 20:09] VITALS: BP 115/83
--- NOTE | 2021-10-03 03:43 | NUR ---
PROGRESS PT A/O X4 UP WITH SBA TO TOLIET TOLERATING ACTIVITY WELL. O2 AT 2 LITERS LUNGS SOUNDS CLEAR WITH NO WHEEZING NOTED THIS SHIFT PT HAS A INFREQUENT PRODUCTIVE COUGH CLEAR THIN SPUTUM NOTED, AWAITING SAMPLE TO SEND FOR C&S. DENIES PAIN VOIDING QS IVF'S CONTINUE PLAN IS TO INCREASE ACTIVITY AND TITRATE O2 TOLERATED.
[2021-10-03 04:59] VITALS: BP 129/90
[2021-10-03 05:19] LABS: ALBUMIN 2.6 g/dL (3.4-5.0); ANION GAP 13 mmol/L (7-16); BUN 12 mg/dL (7-18); CALCIUM 8.7 mg/dL (8.5-10.1); CHLORIDE 107 mmol/L (98-107); CO2 21 mmol/L (21-32); CREATININE 0.6 mg/dL (0.6-1.0); DIRECT BILIRUBIN < 0.1 mg/dL (<0.1-0.2); GLUCOSE 107 mg/dL (74-106); PHOSPHORUS 3.1 mg/dL (2.5-4.9); POTASSIUM 3.4 mmol/L (3.5-5.1); SGOT 17 U/L (15-37); SGPT 26 U/L (30-65); SODIUM 141 mmol/L (136-145); TOTAL BILIRUBIN 0.3 mg/dL (0.2-1.0); TOTAL PROTEIN 6.5 g/dL (6.4-8.2)
[2021-10-03 07:20] VITALS: BP 136/88
[2021-10-03] MEDS ORDERED: CEFDINIR300 MG PO (10:47)
[2021-10-03] MEDS ORDERED: PREDNISONE 10 M10 M1 PO (10:52)
[2021-10-03 11:10] VITALS: BP 111/79
[2021-10-03 11:20] VITALS: BP 111/79
--- NOTE | 2021-10-03 13:37 | NUR ---
TOOK OVER CARE OF THIS PATIENT AT 0700. PATIENT RESTING IN BED DURING REPORT. PT DENIES ANY NEEDS AT THIS TIME. PT DENIES SHORTNESS OF BREATH AT REST; BECOMES SOA WITH EXERTION BUT RECOVERS. PLAN TO DISCHARGE TODAY. DISCHARGE VIA PERSONAL VEHICLE WITH FAMILY. AGREEABLE TO DISCHARGE PLAN.
--- NOTE | 2021-10-03 14:08 | NUR ---
DISCHARGE NOTE: SW reviewed chart and spoke with attending physician. Pt is medically stable for discharge home today. Pt is afebrile and on room air. Pt has completed her course or Remdesivir. Pt discharged home earlier today. Pt's family provided transportation. No SW needs identified. Case closed.
== END 2021-10-03 13:30 | disposition home or self-care (01) | DRG 177 ==
LOC: ER 06:22 → 3W 07:57 → EROBS 07:57 → 3W 10:17
PROVIDERS: Emergency Medicine; Hospitalist; Nurse Practitioner; ADMIT Internal Medicine; ATTEND Internal Medicine
PROC: XW033E5 Introduction of Remdesivir Anti-infective into Peripheral Vein, Percutaneous Approach, New Technology Group 5 (ICD-10-PCS; principal; 2021-09-29)
DX: U07.1 COVID-19 (principal); J12.82 Pneumonia due to coronavirus disease 2019; J96.01 Acute respiratory failure with hypoxia; I10 Essential (primary) hypertension; E87.6 Hypokalemia; E89.0 Postprocedural hypothyroidism; Z88.6 Allergy status to analgesic agent; Z79.899 Other long term (current) drug therapy
CPT/HCPCS: 10879

== ENCOUNTER 2021-10-27 23:17 | Emergency (ER) | payer BC, OTHER ==
[~2021-10-27] VITALS: Ht 154.9 cm; Wt 72.6 kg
[~2021-10-27 23:17] MED LIST changes: +CEFDINIR300 MG PO; +PREDNISONE 10 M10 M1 PO
[2021-10-27 23:19] VITALS: BP 154/99
[2021-10-27] MEDS ORDERED: POTASSIUM CITR10 ME1 PO (23:25)
[2021-10-28] MEDS ORDERED: ZPAK PO (03:10)
[2021-10-28] MEDS ORDERED: TESSALON PERLE100 MG PO (03:10)
[2021-10-28] MEDS ORDERED: MOBIC15 MG PO (03:10)
== END 2021-10-28 03:43 | disposition home or self-care (01) ==
LOC: ER 23:17
DX: J06.9 Acute upper respiratory infection, unspecified (principal); I10 Essential (primary) hypertension; Z86.16 Personal history of COVID-19; Z90.89 Acquired absence of other organs; Z79.899 Other long term (current) drug therapy; Z88.5 Allergy status to narcotic agent

== ENCOUNTER 2021-11-02 19:14 | Emergency (ER) | payer OTHER ==
[~2021-11-02] VITALS: Ht 154.9 cm; Wt 72.6 kg
[~2021-11-02 19:14] MED LIST changes: +MOBIC15 MG PO; +TESSALON PERLE100 MG PO; +ZPAK PO
[2021-11-02] MEDS ORDERED: LEVOFLOXACIN750 MG PO (20:41)
[2021-11-02 20:58] VITALS: BP 120/68
== END 2021-11-02 20:58 | disposition home or self-care (01) ==
LOC: ER 19:14
DX: J18.9 Pneumonia, unspecified organism (principal); Z20.822 Contact with and (suspected) exposure to COVID-19; I10 Essential (primary) hypertension; Z86.16 Personal history of COVID-19; Z86.718 Personal history of other venous thrombosis and embolism; Z90.89 Acquired absence of other organs; Z79.899 Other long term (current) drug therapy; Z88.5 Allergy status to narcotic agent

== ENCOUNTER 2021-11-12 02:26 | Emergency (ER) | payer OTHER ==
[~2021-11-12] VITALS: Ht 154.9 cm; Wt 74.8 kg
[~2021-11-12 02:26] MED LIST changes: +LEVOFLOXACIN750 MG PO
[2021-11-12 02:48] VITALS: BP 127/85
[2021-11-12] MEDS ORDERED: CLARITIN-D 241 EAC1 PO (03:28)
[2021-11-12] MEDS ORDERED: PREDNISONE 20 M20 MG PO (03:28)
== END 2021-11-12 03:33 | disposition home or self-care (01) ==
LOC: ER 02:26
DX: R06.00 Dyspnea, unspecified (principal); I10 Essential (primary) hypertension; Z79.899 Other long term (current) drug therapy; Z98.890 Other specified postprocedural states; Z88.5 Allergy status to narcotic agent